=== PATIENT | male | born 1970 | race African-American/Black ===

== ENCOUNTER 2016-08-28 22:30 | Emergency (ER) | payer OTHER ==
[~2016-08-28] VITALS: Ht 172.7 cm; Wt 97.5 kg
[~2016-08-28 22:30] MED LIST: ASPIRIN81 M1 PO; COREG12.5 MG PO; ENALAPRIL10 MG PO; LIPITOR80 MG PO
[2016-08-28] MEDS ORDERED: BACTRIM DS 8001 TA1 PO (23:08)
== END 2016-08-28 23:15 | disposition home or self-care (01) ==
LOC: ED 22:30
DX: L73.1 Pseudofolliculitis barbae (principal); F17.200 Nicotine dependence, unspecified, uncomplicated; I25.2 Old myocardial infarction; Z95.5 Presence of coronary angioplasty implant and graft; Z79.82 Long term (current) use of aspirin; Z88.0 Allergy status to penicillin; Z88.6 Allergy status to analgesic agent; Z91.041 Radiographic dye allergy status

== ENCOUNTER 2016-11-29 17:51 | Emergency (ER) | payer OTHER ==
[~2016-11-29] VITALS: Wt 96.2 kg
[~2016-11-29 17:51] MED LIST changes: +BACTRIM DS 8001 TA1 PO
[2016-11-29] MEDS ORDERED: CLINDAMYCIN HC300 MG PO (18:12)
== END 2016-11-29 18:17 | disposition home or self-care (01) ==
LOC: ED 17:51
DX: L02.211 Cutaneous abscess of abdominal wall (principal); F17.200 Nicotine dependence, unspecified, uncomplicated; Z88.0 Allergy status to penicillin; Z88.6 Allergy status to analgesic agent; Z91.041 Radiographic dye allergy status; Z95.5 Presence of coronary angioplasty implant and graft